=== PATIENT | female | born 1965 | race Caucasian/White ===

== ENCOUNTER 2020-02-27 11:34 | Inpatient (IN) | payer OTHER ==
[~2020-02-27] VITALS: Ht 180.3 cm; Wt 93.0 kg
[~2020-02-27 11:34] MED LIST: APAP500 MG PO; DILANTIN100 MG PO; HYDROCORTISONE11 EXT; LACTULOSE10 GM/152 PO; LAXATIVE5 M1 PO; SERTRALINE HYDR25 MG PO; TRILEPTAL150 MG PO
[2020-02-27 11:56] VITALS: Ht 180.3 cm; Wt 93.0 kg
[2020-02-27 12:35] LABS: BASOPHIL % 1.2 % (0-2); PLATELET COUNT 123 x10^3mcL (130-400); RED CELL DISTRIBUTION WIDTH 14.9 % (11.5-14.5)
[2020-02-27 12:48] LABS: CARBON DIOXIDE 23.4 mmol/L (21-32); CHLORIDE SERUM 110 mmol/L (98-107); GFR1 > 60 mL/min; GLUCOSE SERUM 101 mg/dL (74-106); POTASSIUM SERUM 4.2 mmol/L (3.5-5.1); SODIUM SERUM 144 mmol/L (136-145)
[2020-02-27 12:53] LABS: ALBUMIN 3.6 g/dL (3.4-5.0); ALKALINE PHOSPHATASE 117 U/L (46-116); ALT/SGPT 36 U/L (14-59); AST/SGOT 31 U/L (15-37); BILIRUBIN TOTAL 1.45 mg/dL (0.20-1.00); TOTAL PROTEIN, SERUM 6.8 g/dL (6.4-8.2)
[2020-02-27 13:33] LABS: AMPHETAMINE QUAL UR NONE DETECTED (See below)
[2020-02-27 16:27] VITALS: BP 142/78
[2020-02-27 20:37] VITALS: BP 130/72
[2020-02-28 05:37] VITALS: BP 121/65
[2020-02-28 06:39] LABS: BASOPHIL % 0.4 % (0-2)
[2020-02-28 06:59] LABS: PLATELET COUNT 117 x10^3mcL (130-400)
[2020-02-28 07:17] LABS: CALCIUM 8.5 mg/dL (8.5-10.1); CHLORIDE SERUM 111 mmol/L (98-107); CREATININE SERUM 0.9 mg/dL (0.6-1.0); GFR1 > 60 mL/min; GLUCOSE SERUM 94 mg/dL (74-106); POTASSIUM SERUM 3.9 mmol/L (3.5-5.1); SODIUM SERUM 143 mmol/L (136-145)
[2020-02-28 08:57] VITALS: BP 122/60
[2020-02-28 13:48] VITALS: BP 124/66
[2020-02-28 17:38] VITALS: BP 135/76
[2020-02-28 21:02] VITALS: BP 100/50
[2020-02-29 06:07] VITALS: BP 94/46
[2020-02-29 06:51] LABS: CALCIUM 8.4 mg/dL (8.5-10.1); CARBON DIOXIDE 26.3 mmol/L (21-32); CHLORIDE SERUM 109 mmol/L (98-107); CREATININE SERUM 0.9 mg/dL (0.6-1.0); GFR1 > 60 mL/min; GLUCOSE SERUM 80 mg/dL (74-106); POTASSIUM SERUM 3.7 mmol/L (3.5-5.1); SODIUM SERUM 142 mmol/L (136-145)
[2020-02-29 07:12] LABS: BASOPHIL % 0.6 % (0-2); PLATELET COUNT 105 x10^3mcL (130-400); RED CELL DISTRIBUTION WIDTH 14.6 % (11.5-14.5)
[2020-02-29 09:01] VITALS: BP 116/63
[2020-02-29 12:59] VITALS: BP 111/56
[2020-02-29 16:29] VITALS: BP 11/56
[2020-02-29 16:53] VITALS: BP 111/60
== END 2020-02-29 19:58 | disposition other institution (70) | DRG 441 ==
LOC: ED 11:34 → DU 14:06
PROVIDERS: Emergency Medicine; ADMIT Internal Medicine; ATTEND Internal Medicine
DX: K72.00 Acute and subacute hepatic failure without coma (principal); G93.41 Metabolic encephalopathy; Z20.828 Contact with and (suspected) exposure to other viral communicable diseases; F29 Unspecified psychosis not due to a substance or known physiological condition; G40.909 Epilepsy, unspecified, not intractable, without status epilepticus; Z88.5 Allergy status to narcotic agent; Z88.0 Allergy status to penicillin; Z91.040 Latex allergy status; E03.9 Hypothyroidism, unspecified; Z79.899 Other long term (current) drug therapy
CPT/HCPCS: 83880; G0378; J7030; Q0092; U0003-CS